=== PATIENT | female | born 1990 | race Caucasian/White ===

== ENCOUNTER 2020-11-20 21:34 | Observation (INO) ==
[2020-11-20 22:05] LABS: Bilirubin,Urine Negative (Negative); Blood,Urine Negative (Negative); Clarity,Urine Clear (Clear); Color,Urine Colorless (Yellow); Glucose,Urine (UA) Normal (Normal); Ketones,Urine Negative (Negative); Leukocyte Esterase,Urine Negative (Negative); Nitrite,Urine Negative (Negative); Protein,Urine Negative (Neg-Trace); Specific Gravity,Urine < 1.005 (1.010-1.025); Urobilinogen,Urine Normal (Normal)
[2020-11-20 23:02] LABS: Trichomonas DNA Not Detected (Not Detect)
[2020-11-20 23:03] LABS: Candida DNA Not Detected (Not Detect); Gardnerella DNA DETECTED (Not Detect)
== END 2020-11-21 00:45 | disposition home or self-care (01) ==
LOC: 1NENULAB
PROVIDERS: ADMIT Advanced Practice Midwife; ATTEND Advanced Practice Midwife

== ENCOUNTER 2020-12-20 09:54 | Inpatient (IN) ==
[2020-12-20] MEDS ORDERED: Azithromycin 500 MG in 0.9 % Sodium Chloride 250 ML IVPB PRN (10:08)
[2020-12-20] MEDS ORDERED: Ondansetron 4 MG/2 ML VIAL IVP PRN (10:08)
[2020-12-20] MEDS ORDERED: Naloxone 0.4 MG/ML INJ IVP PRN (10:08)
[2020-12-20] MEDS ORDERED: Famotidine 20 MG/2 ML VIAL IVP PRN (10:08)
[2020-12-20] MEDS ORDERED: *HR* Nalbuphine 10 MG/ML AMPUL IV PRN (10:08)
[2020-12-20] MEDS ORDERED: Metoclopramide 10 MG/2 ML VIAL IVP PRN (10:08)
[2020-12-20] MEDS ORDERED: Ringers Solution, Lactated 1,000 ML IVC SCH (10:15)
[2020-12-20 10:52] LABS: Basophils % 0.3 %; Eosinophils % 0.1 %; Hematocrit 35.2 % (35.3-44.9); Hemoglobin 11.9 g/dL (11.5-15.4); Immature Granulocytes % 0.6 % (0-4); Lymphocytes # 1.2 K/mcL (0.6-4.6); Lymphocytes % 12.4 %; Mean Corpuscular HGB Conc 33.8 g/dL (31.6-35.5); Mean Corpuscular Hemoglobin 28.5 pg (28.0-33.3); Mean Corpuscular Volume 84.4 fL (83.0-100.0); Mean Platelet Volume 11.3 fL (9.4-12.4); Monocytes # 0.3 K/mcL (0.0-1.3); Monocytes % 3.2 %; Neutrophils # 7.9 K/mcL (1.6-8.9); Platelet Count 191 K/mcL (140-400); Red Blood Count 4.17 M/mcL (3.82-4.97); Red Cell Distribution Width 12.7 % (11.5-14.5); Segmented Neutrophils % 83.4 %; White Blood Count 9.5 K/mcL (4.3-11.1)
[2020-12-20 11:00] LABS: Amphetamine Screen,Urine Negative ng/mL (Cutoff=1000); Barbiturate Screen,Urine Negative ng/mL (Cutoff=200); Benzodiazepines Screen,Urine Negative ng/mL (Cutoff=200); Cannabinoid Screen,Urine Negative ng/mL (Cutoff = 50); Cocaine Screen,Urine Negative ng/mL (Cutoff= 300); Opiate Screen,Urine Negative ng/mL (Cutoff=300); Phencyclidine Screen,Urine Negative ng/mL (Cutoff=25)
[2020-12-20] MEDS ORDERED: Oxytocin 20 units/ LR 1000 mL 20 UNIT/1,000 ML BAG IVC SCH ×2 (11:15→23:00)
[2020-12-20] MEDS ORDERED: Ropivacaine/PF 0.2% 20 ML VIAL EP ONE (14:22)
[2020-12-20] MEDS ORDERED: EPHEDrine 50 MG/ML VIAL IVP PRN (14:22)
[2020-12-20] MEDS ORDERED: *HR* FentaNYL (PF) 100 MCG/2 ML VIAL EP ONE (14:22)
[2020-12-20] MEDS ORDERED: *HR* FentaNYL (PF) 100 MCG/2 ML VIAL ONE ×2 (14:28→17:01)
[2020-12-20] MEDS ORDERED: Ropivacaine/PF 0.2% 20 ML VIAL ONE (14:28)
[2020-12-20] MEDS ORDERED: Epidural Premix (fent/bupiv) 110 ML EP SCH (14:30)
[2020-12-20] MEDS ORDERED: Famotidine 20 MG/2 ML VIAL ONE (19:10)
[2020-12-20] MEDS ORDERED: Methylergonovine 0.2 MG/ML AMPUL IM ONE ×2 (22:19→22:23)
[2020-12-20] MEDS ORDERED: miSOPROStoL 100 MCG TABLET RC ONE (22:19)
[2020-12-20] MEDS ORDERED: Measles/Mumps/Rubella Vacc 0.5 ML VIAL SQ PRN (23:00)
[2020-12-20] MEDS ORDERED: Acetaminophen 325 MG TABLET PO PRN (23:00)
[2020-12-21 05:38] LABS: Basophils % 0.2 %; Eosinophils % 0.1 %; Hematocrit 29.1 % (35.3-44.9); Immature Granulocytes % 0.5 % (0-4); Lymphocytes # 1.1 K/mcL (0.6-4.6); Lymphocytes % 9.5 %; Mean Corpuscular HGB Conc 33.7 g/dL (31.6-35.5); Mean Corpuscular Hemoglobin 28.3 pg (28.0-33.3); Mean Corpuscular Volume 84.1 fL (83.0-100.0); Mean Platelet Volume 11.5 fL (9.4-12.4); Monocytes # 0.6 K/mcL (0.0-1.3); Monocytes % 5.2 %; Neutrophils # 9.9 K/mcL (1.6-8.9); Platelet Count 154 K/mcL (140-400); Red Blood Count 3.46 M/mcL (3.82-4.97); Red Cell Distribution Width 12.4 % (11.5-14.5); Segmented Neutrophils % 84.5 %; White Blood Count 11.7 K/mcL (4.3-11.1)
[2020-12-21 05:40] LABS: Hemoglobin 9.8 g/dL (11.5-15.4)
[2020-12-21] MEDS: Ibuprofen 600 MG TABLET PO PRN ×2 (06:03→13:49)
[2020-12-21] MEDS ORDERED: Prenatal Vit/FA 1 EACH TABLET PO SCH (09:00)
[2020-12-21] MEDS ORDERED: Loratadine 10 MG TABLET PO SCH (09:00)
[2020-12-21] MEDS ORDERED: NON-FORMULARY MEDICATION 1 EACH EACH (Ferrous Sulfate [Iron] 325 MG Tablet) PO SCH (09:00)
[2020-12-21] MEDS ORDERED: NON-FORMULARY MEDICATION 1 EACH EACH (Prenat 115/Iron Fum/Folic/Dss [Prenatal 19 Tablet] 1 PO SCH (09:00)
[2020-12-21 22:11] VITALS: BP 103/72; PULSE 81; TEMP 98.1; O2SAT 96
== END 2020-12-21 22:20 | disposition home or self-care (01) | DRG 542 ==
LOC: 1NENULAB 09:54 → 1NENUOBS 12-21 00:45
PROVIDERS: ADMIT Obstetrics & Gynecology; ATTEND Obstetrics & Gynecology